=== PATIENT | female | born 2000 | race Hispanic/Latino ===

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

== ENCOUNTER 2022-07-03 14:16 | Emergency (ER) | payer BC, OTHER ==
[~2022-07-03] VITALS: Ht 172.7 cm; Wt 83.9 kg
[2022-07-03 14:18] VITALS: BP 133/69
[2022-07-03] MEDS ORDERED: OSEL75 PO (15:42)
[2022-07-03] MEDS ORDERED: OSELTAMIVIR PHOSPHATE 75 MG CAP ONE (15:50)
[2022-07-03] MEDS ORDERED: OSELTAMIVIR PHOSPHATE 75 MG CAP PO SCH (16:00)
== END 2022-07-03 15:55 | disposition home or self-care (01) ==
LOC: EDH 14:16
DX: J10.1 Influenza due to other identified influenza virus with other respiratory manifestations (principal); Z20.822 Contact with and (suspected) exposure to COVID-19
CPT/HCPCS: 81025; 87804

== ENCOUNTER 2023-03-22 07:19 | Emergency (ER) | payer BC ==
[~2023-03-22] VITALS: Ht 172.7 cm; Wt 83.9 kg
[~2023-03-22 07:19] MED LIST: OSEL75 PO
[2023-03-22 07:23] VITALS: BP 138/79
== END 2023-03-22 12:06 | disposition left against medical advice (07) ==
LOC: EDH 07:19
DX: J06.9 Acute upper respiratory infection, unspecified (principal); Z20.822 Contact with and (suspected) exposure to COVID-19
CPT/HCPCS: 99283; 87635; 87880; 87804 ×2; C9803